=== PATIENT | male | born 1975 | race Caucasian/White ===

== ENCOUNTER 2019-02-20 13:20 | Emergency (ER) | payer OTHER ==
[~2019-02-20] VITALS: Ht 177.8 cm; Wt 132.0 kg
[2019-02-20 14:10] VITALS: BP 154/83
[2019-02-20] MEDS ORDERED: ONDANSETRON ODT 4 MG TAB.RAPDIS PO ONE (14:45)
--- NOTE | 2019-02-20 15:42 | RAD ---
TIBIA FIBULA RIGHT History: Injury Technique: 2 views right tib-fib Comparison: None. Findings: Normal alignment. No fracture. Anterior lower leg soft tissue swelling. Impression: 1. No acute osseous abnormality. 2. Anterior lower leg soft tissue swelling. Electronically signed by: Nguyễn Zaragoza DO (02/20/2019 3:39 PM) [facility]
--- NOTE | 2019-02-20 16:23 | RAD ---
EXTREM NONVASCULAR LTD RIGHT History: Right lower leg hematoma. Comparison: None Technique: Sonographic examination of the right medial lower leg Findings: Targeted ultrasound of the right medial lower leg in the region of the patient's palpable concern. There is a heterogeneous fluid collection measures 5.9 x 4.1 x 2.1 cm. There is adjacent soft tissue edema. Impression: 1. Heterogeneous fluid collection within the right mid lower extremity with adjacent subcutaneous edema, likely hematoma given history of trauma. Recommend correlation for infection. Electronically signed by: Nguyễn Zaragoza DO (02/20/2019 4:20 PM) [facility]
--- NOTE | 2019-02-20 16:39 | PHYS DOC ---
Adult General Chief Complaint Chief Complaint: LOWER EXTREMITY SWELLING HPI HPI Patient is a 43-year-old male who presents with complaint of right lower leg pain and swelling after injuring his leg on Wednesday. Patient states that he was chasing after his kids when he ran into an iron rail with his leg. He does report to significant amount of swelling and pain in the area. He rates pain at an 8 out of 10. Patient states that he was seen over at his primary care doctor's office who sent him to the emergency room for imaging. He denies any chest pain or shortness breath.[] Review of Systems Review of Systems Constitutional: Denies fever or chills [] Respiratory: Denies cough or shortness of breath [] Cardiovascular: No additional information not addressed in HPI [] Musculoskeletal: Positive right lower leg pain [] Integument: Denies rash or skin lesions [] Neurologic: Denies headache, focal weakness or sensory changes [] Current Medications Current Medications Current Medications Medications (Trade) Dose Ordered Sig/Sissy Start Time Stop Time Status Last Admin Dose Admin Ondansetron HCl (Zofran Odt) 4 mg 1X ONCE 02/20/19 14:45 02/20/19 14:46 DC 02/20/19 15:16 4 MG Allergies Allergies Allergies Coded Allergies Type Severity Reaction Last Updated Verified Sulfa (Sulfonamide Antibiotics) Allergy Unknown 02/20/19 Yes Physical Exam Physical Exam Constitutional: Well developed, well nourished, no acute distress, non-toxic appearance. [] Neck: Normal range of motion, no tenderness, supple, no stridor. [] Cardiovascular: Regular rate and rhythm[] Lungs & Thorax: Bilateral breath sounds clear to auscultation [] Skin: Warm, dry, no erythema, no rash. [] Extremities: Examination of right lower leg demonstrates soft tissue swelling with ecchymosis along the medial border consistent with traumatic hematoma. [] Neurologic: Alert and oriented X 3, no focal deficits noted. [] EKG EKG [] Radiology/Procedures Radiology/Procedures [] Impressions: PROCEDURE: EXTREM NONVASCULAR LTD RIGHT EXTREM NONVASCULAR LTD RIGHT History: Right lower leg hematoma. Comparison: None Technique: Sonographic examination of the right medial lower leg Findings: Targeted ultrasound of the right medial lower leg in the region of the patient's palpable concern. There is a heterogeneous fluid collection measures 5.9 x 4.1 x 2.1 cm. There is adjacent soft tissue edema. Impression: 1. Heterogeneous fluid collection within the right mid lower extremity with adjacent subcutaneous edema, likely hematoma given history of trauma. Recommend correlation for infection. Electronically signed by: Nguyễn Zaragoza DO (02/20/2019 4:20 PM) [facility] Course & Med Decision Making Course & Med Decision Making Pertinent Labs and Imaging studies reviewed. (See chart for details) [] Dragon Disclaimer Dragon Disclaimer This electronic medical record was generated, in whole or in part, using a voice recognition dictation system. Departure Departure: Impression: Primary Impression: Traumatic hematoma of right lower leg Disposition: HOME, SELF-CARE Condition: STABLE Referrals: MAYO COE MD (PCP) Patient Instructions: Hematoma Problem Qualifiers Primary Impression: Traumatic hematoma of right lower leg Encounter type: initial encounter Qualified Codes: S80.11XA - Contusion of right lower leg, initial encounter MELODY STINSON Jr., DO Feb 20, 2019 16:39
== END 2019-02-20 16:54 | disposition home or self-care (01) ==
LOC: ER 13:32
DX: S80.11XA Contusion of right lower leg, initial encounter (principal); Z88.2 Allergy status to sulfonamides; W22.8XXA Striking against or struck by other objects, initial encounter; Y93.89 Activity, other specified; Y92.89 Other specified places as the place of occurrence of the external cause; Y99.8 Other external cause status
CPT/HCPCS: 73590; 76882; 99284; Q0162